=== PATIENT | female | born 1980 | race Caucasian/White ===

== ENCOUNTER 2023-04-02 15:10 | Emergency (ER) | payer MEDICAID, OTHER ==
[~2023-04-02] VITALS: Ht 149.9 cm; Wt 64.4 kg
[2023-04-02 15:59] VITALS: BP 126/75; PULSE 100; RESP 18; TEMP 98.7; O2SAT 100
[2023-04-02] MEDS ORDERED: HYDROcodone-ACET 5/325MG TAB PO ONE (16:45)
[2023-04-02] MEDS ORDERED: CEPH500C PO (17:10)
[2023-04-02] MEDS ORDERED: TRAM50TA2 PO (17:10)
== END 2023-04-02 17:08 | disposition home or self-care (01) ==
LOC: ER 15:10
DX: S93.401A Sprain of unspecified ligament of right ankle, initial encounter (principal); S63.91XA Sprain of unspecified part of right wrist and hand, initial encounter; V43.52XA Car driver injured in collision with other type car in traffic accident, initial encounter; Y93.89 Activity, other specified; Y92.488 Other paved roadways as the place of occurrence of the external cause; Y99.8 Other external cause status
CPT/HCPCS: 73130; 73610

== ENCOUNTER 2023-05-18 08:46 | Emergency (ER) | payer MEDICAID ==
[~2023-05-18] VITALS: Ht 147.3 cm; Wt 52.3 kg
[~2023-05-18 08:46] MED LIST: CEPH500C PO; TRAM50TA2 PO
[2023-05-18 10:28] VITALS: BP 138/79; PULSE 8; RESP 16; TEMP 98.6; O2SAT 99
[2023-05-18] MEDS ORDERED: KETOROLAC TROMETH 60MG/2ML VIAL IM ONE (10:45)
[2023-05-18] MEDS ORDERED: IBUP1TAB5 PO (11:33)
== END 2023-05-18 12:41 | disposition home or self-care (01) ==
LOC: ER 08:46
DX: S93.401A Sprain of unspecified ligament of right ankle, initial encounter (principal); X58.XXXA Exposure to other specified factors, initial encounter; Y93.01 Activity, walking, marching and hiking; Y92.89 Other specified places as the place of occurrence of the external cause; Y99.8 Other external cause status
CPT/HCPCS: 73610; 73630; 96372; 99284; J1885